=== PATIENT | female | born 1975 | race Caucasian/White ===

== ENCOUNTER → 2016-12-25 | Outpatient (CLI) | payer OTHER | LOC: CIMAGING 12:22 | PROVIDERS: ATTEND Internal Medicine | DX: Z12.31 Encounter for screening mammogram for malignant neoplasm of breast (principal); Z80.3 Family history of malignant neoplasm of breast | CPT/HCPCS: G0202 ==

== ENCOUNTER 2017-04-09 06:58 | Day surgery (SDC) | payer OTHER ==
--- NOTE | 2017-03-30 20:12 | GHP ---
[f rep st] PREOP HISTORY AND PHYSICAL DATE OF ADMISSION: 04/09/2017 DATE OF PLANNED PROCEDURE: 04/09/2017. PLANNED PROCEDURE: Hysteroscopy with morcellation of endometrial tissue and an endometrial ablation. INDICATIONS: Patient is a 41-year-old, 3, para 2-0-1-2, who initially presented in January of 2017 with complaint of heavy, irregular periods. Patient's were regular until the last year or two, where her cycles are now every 2 to 5 weeks. When she goes 5 weeks between cycles, she will often bleed for 7 to 10 days and it is very heavy. If she bleeds at 2 weeks, she will usually bleed for 3 days and then it is a little bit dowel pointer. The patient is noticing increased acne and mood changes at the week before her cycle. The patient is hesitant to use control pills because her sister had breast cancer at age 37, but was BRCA negative. Patient has had regular mammograms. The patient did try Lo Loestrin for a short period of time, but did continue to have breakthrough bleeding. A pelvic ultrasound was obtained which showed a uterus measuring 7.4 x 3.6 x 4.3 cm with a 0.36 cm endometrium and a 0.8 x 0.6 x 0.6 cm subserosal fibroid and normal ovaries. Management options were again reviewed with the patient, and the patient is electing to proceed with a hysteroscopy with morcellation of endometrial tissue and endometrial ablation. Patient is aware that the ablation will not resolve her acne or mood issues. However, she would like to have minimize her bleeding. Risks and benefits have been reviewed with the patient. The patient has been properly consented. MEDICAL HISTORY: Irregular cycles. MEDICATIONS: Vitamins. PAST SURGICAL HISTORY: D and C for miscarriage. ALLERGIES: Sulfa. FAMILY MEDICAL HISTORY: Noncontributory. SOCIAL HISTORY: Patient is . She lives with her and 2 children. She denies tobacco or drug use. She does drink 3 to 4 alcoholic beverages a week. FAMILY MEDICAL HISTORY: Significant for sister at 37 had breast cancer. She is BRCA negative. Otherwise is negative. [employer] HISTORY: Menarche age 12. Periods are every 2 to 5 weeks and can be heavy and moderate or light, depending on how frequently she bleeds. She denies any history of any abnormal Pap smears or sexually transmitted diseases. She is a 3, para 2-0-1-2. She has had 2 spontaneous vaginal deliveries and 1 missed which was treated with a dilation and curettage. REVIEW OF SYSTEMS: 10-point review of systems is negative with the exception of the above-mentioned pertinent positives. PHYSICAL EXAMINATION: VITAL SIGNS: Stable. GENERAL APPEARANCE: Alert and oriented x3. PSYCH: She is appropriate affect. MUSCULOSKELETAL: Grossly intact. NEURO: Grossly intact. HEART: Rate is regular. LUNGS: Clear to auscultation bilaterally. ABDOMEN: Soft, nondistended, nontender. EXTREMITIES : No calf tenderness or edema. PELVIC: A mobile mid position with no adnexal masses. Pelvic ultrasound as described above. Endometrial biopsy was negative and benign. Risks and benefits have been reviewed with the patient. Patient has been properly consented. /[id number]/MODL MTDD
[~2017-04-09 06:58] MED LIST: DOXYCYCLINE INJ 100 MG in NS 250 ML IV ONE
[2017-04-09] MEDS ORDERED: LIDOCAINE 1% 2 ML INJ ONE (07:15)
[2017-04-09] MEDS ORDERED: LR 1,000 ML IV ONE (07:26)
[2017-04-09] MEDS ORDERED: LIDOCAINE 1% 2 ML INJ ID PRN (07:26)
[2017-04-09] MEDS ORDERED: SILVER NITRATE APPLICATOR 1 APPL TP ONE (07:46)
--- NOTE | 2017-04-09 08:31 | PDHPUP ---
History & Physical Update H&P update statement: This history and physical update is based on an assessment of the patient which was completed after admission or registration (within 24 hours), but prior to the surgery/procedure. H&P update: H&P reviewed & patient examined, no change in patient's condition since H&P completed
[2017-04-09] MEDS ORDERED: MIDAZOLAM 2 MG/2 ML VIAL IVP ONE (08:32)
[2017-04-09] MEDS ORDERED: SCOPOLAMINE HYDROBROMIDE 1 MG/3 DAYS PATCH TD ONE (08:32)
--- NOTE | 2017-04-09 08:34 | PDANEPAE ---
ANE Past Medical History - Cardiovascular History Hx Hypertension: No Hx Arrhythmias: No Hx Chest Pain: No Hx Coronary Artery / Peripheral Vascular Disease: No Hx CHF / Valvular Disease: No Hx Palpitations: No - Pulmonary History Hx COPD: No Hx Asthma/Reactive Airway Disease: No Hx Recent Upper Respiratory Infection: No Hx Oxygen in Use at Home: No Hx Sleep Apnea: No Sleep Apnea Screening Result - Last Documented: Negative - Neurologic History Hx Cerebrovascular Accident: No Hx Seizures: No Hx Dementia: No - Endocrine History Hx Diabetes: No - Renal History Hx Renal Disorders: No - Liver History Hx Hepatic Disorders: No - Neurological & Psychiatric Hx Hx Neurological and Psychiatric Disorders: No - Cancer History Hx Cancer: No - Congenital Disorder History Hx Congenital Disorders: No - GI History Hx Gastrointestinal Disorders: No - Other Health History Other Health History: menorrhagia - Surgical History Prior Surgeries: D&C for SAB ANE Review of Systems Review of Systems: - Exercise capacity Exercise capacity: >=4 METS METS (RN): 6 METS ANE Patient History - Allergies Allergies/Adverse Reactions: Sulfa (Sulfonamide Antibiotics) Allergy (Intermediate, Verified 03/19/17 13:44) Hives - NPO status NPO Since - Liquids (Date): 04/08/17 NPO Since - Liquids (Time): 21:00 NPO Since - Solids (Date): 04/08/17 NPO Since - Solids (Time): 18:30 - Anes Hx Anes Hx: post operative nausea and vomiting - Smoking Hx Smoking Status: Former smoker - Family Anes Hx Family Hx Anesthesia Complications: none ANE Labs/Vital Signs - Vital Signs Blood Pressure: 105/72 Heart Rate: 58 Respiratory Rate: 16 O2 Sat (%): 100 Height: 167.64 cm Weight: 62.596 kg ANE Physical Exam - Airway Mallampati Score: Class 1 Mouth exam: normal dental/mouth exam - Pulmonary Pulmonary: no respiratory distress, no rales or rhonchi, clear to auscultation - Cardiovascular Cardiovascular: regular rate and rhythym, no murmur, rub, or gallop ANE Anesthesia Plan Anesthesia Plan: GA w LMA
[2017-04-09] MEDS ORDERED: fentaNYL 100 MCG/2 ML INJ ONE ×2 (08:42→09:58)
[2017-04-09] MEDS ORDERED: ONDANSETRON 4 MG/2 ML VIAL ONE ×2 (08:43→10:34)
[2017-04-09] MEDS ORDERED: PROPOFOL 200 MG/20 ML VIAL ONE ×2 (08:43)
[2017-04-09] MEDS ORDERED: DEXAMETHASONE 4 MG/ML VIAL ONE ×2 (08:44)
[2017-04-09] MEDS ORDERED: LIDOCAINE 2% 5 ML SDV ONE (08:44)
[2017-04-09] MEDS ORDERED: KETOROLAC 30 MG/1 ML SDV ONE (08:44)
[2017-04-09] MEDS ORDERED: PROMETHAZINE HCL 25 MG/ML INJ IVP PRN (08:48)
[2017-04-09] MEDS ORDERED: OXYCODONE/APAP 5/325 TAB PO PRN (08:48)
[2017-04-09] MEDS ORDERED: ONDANSETRON 4 MG/2 ML VIAL IVP PRN (08:48)
[2017-04-09] MEDS ORDERED: LR 500 ML IV PRN (08:48)
[2017-04-09] MEDS ORDERED: MEPERIDINE 25 MG/ML SYR IVP PRN (08:48)
[2017-04-09] MEDS ORDERED: ACETAMINOPHEN 500 MG TAB PO PRN (08:48)
[2017-04-09] MEDS ORDERED: NALOXONE HCL 0.4 MG/ML INJ IVP PRN (08:48)
--- NOTE | 2017-04-09 09:39 | POSTANESTH ---
Post Anesthetic Evaluation Cardiovascular Status: Similar to Pre-Op Cond Respiratory Status: Normal, Stable, Similar to Pre-op Cond. Level of Consciousness/Mental Status: Can Participate in Eval, Moderately Sleepy Pain Control: Adequate, Prn Tx Ordered Nausea/Vomiting Control: Adequate, Prn Tx Ordered Complications Possibly Related to Anesthesia: None Noted
[2017-04-09] MEDS: fentaNYL 100 MCG/2 ML INJ IVP PRN ×3 (10:00→10:27)
[2017-04-09] MEDS ORDERED: OXYCODONE/APAP 5/325 TAB ONE (10:29)
[2017-04-09 10:50] VITALS: BP 121/66; PULSE 64; RESP 16; TEMP 97.4; O2SAT 96
--- NOTE | 2017-04-09 11:15 | GOP ---
[f rep st] OPERATIVE REPORT DATE OF OPERATION: 04/09/2017 SURGEON: Denise Lange DO PREOPERATIVE DIAGNOSIS: 1. Dysfunctional uterine bleeding. 2. Menorrhagia. POSTOPERATIVE DIAGNOSIS: 1. Dysfunctional uterine bleeding. 2. Menorrhagia. PROCEDURE PERFORMED: 1. Hysteroscopy. 2. Endometrial ablation. FINDINGS: Exam under anesthesia, mobile small mid position uterus with no adnexal masses. Hysterosc opic findings: Thin endometrium bilateral tubal ostia visualized. SPECIMENS: None. ESTIMATED BLOOD LOSS: 5 cc. INDICATIONS: Patient is a 41-year-old, 3, para 2-0-1-2, who presented in January 2017 with c omplaint of heavy irregular cycles. Her periods are every 2-5 weeks, and she can bleed for 7-10 days when she has a period. Pelvic ultrasound showed a 7.4 x 3.6 x 4.3 cm with a 0.36 cm endometrium and a subserosal fibroid. Normal ovaries. An endometrial biopsy was obtained, which was negative. Man agement options were reviewed with the patient. Decision was made to proceed with a hysteroscopy wit h morcellation of endometrial tissue if needed and an endometrial ablation. Risks and benefits of th e procedure were reviewed with the patient. The patient was properly consented. DESCRIPTION OF PROCEDURE: Patient was taken to the operating room with intravenous fluids in place. She was then placed on the operating room table in a dorsal supine position where general anesthesia was obtained. She was given 100 mg of doxycycline intravenously. She was then prepped and draped i n normal sterile fashion. A speculum was then placed in the patient's vagina. An Allis clamp was us ed to grasp the anterior lip of the cervix. The cervix sounded to 7 cm. The hysteroscope was then i ntroduced with fluid medium running. Thin endometrium was noted. Bilateral tubal ostia were visuali zed. Because of a benign endometrial biopsy done in the office previously, endometrial morcellation was not performed as the lining was thin. The Francheska apparatus was then inserted and an endometrial ablation was performed after cavity assessment was completed. The Francheska was then withdrawn. The hysteroscope was then reintroduced, and a diffusely ablated endometrial cavity was noted. Instrument s were then removed from the patient's vagina. Patient was returned to the dorsal supine position wh ere she was easily awoken from anesthesia. Sponge count was correct. Patient was transported to rec overy room in stable condition. /[id number]/MODL
== END 2017-04-09 11:33 | disposition home or self-care (01) ==
LOC: FSGY 06:58
PROVIDERS: ATTEND Obstetrics & Gynecology
PROC: 0U5B8ZZ Destruction of Endometrium, Via Natural or Artificial Opening Endoscopic (ICD-10-PCS; principal; 2017-04-09 08:30)
DX: N93.8 Other specified abnormal uterine and vaginal bleeding (principal); N92.0 Excessive and frequent menstruation with regular cycle; D25.2 Subserosal leiomyoma of uterus; Z88.2 Allergy status to sulfonamides; Z87.891 Personal history of nicotine dependence
CPT/HCPCS: J1100; J1885; J2250; J2405; J2704; J3010

== ENCOUNTER → 2017-12-27 | Outpatient (CLI) | payer OTHER | LOC: CIMAGING 14:46 | PROVIDERS: ATTEND Obstetrics & Gynecology | DX: Z12.31 Encounter for screening mammogram for malignant neoplasm of breast (principal) ==